=== PATIENT | male | born 1985 | race Caucasian/White ===

== ENCOUNTER 2023-07-22 17:31 | Emergency (ER) | payer OTHER, SELFPAY ==
[2023-07-22 17:33] VITALS: BP 131/84; PULSE 93; TEMP 36.7; O2SAT 99
--- NOTE | 2023-07-22 17:37 | ECG_ITS ---
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
[2023-07-22 18:44] VITALS: BP 132/88; PULSE 81; O2SAT 100
== END 2023-07-22 18:48 | disposition home or self-care (01) ==
PROVIDERS: Emergency Provider Emergency Medicine; PCP Family Medicine
DX: T40.411A Poisoning by fentanyl or fentanyl analogs, accidental (unintentional), initial encounter (principal)
CPT/HCPCS: 93005; 99283